=== PATIENT | female | born 1975 | race African-American/Black ===

== ENCOUNTER 2022-06-01 20:50 | Emergency (ER) | payer MEDICARE, SELFPAY ==
[2022-06-01 21:08] VITALS: BP 135/78; PULSE 85; RESP 18; TEMP 36.7; O2SAT 98; BMI 36.9
--- NOTE | 2022-06-01 21:34 | CRLHL7_ITS ---
For Patients: As a result of the Cures Act, medical imaging exams and procedure reports are released immediately into your electronic medical record. You may view this report before your referring provider. If you have questions, please contact your health care provider. INDICATION: Dyspnea, history chronic obstructive pulmonary disease TECHNIQUE: Chest radiograph 2 views COMPARISON: None FINDINGS: The sensitivity and specificity of the exam are moderately limited by the patient`s body habitus. Mediastinum: The mediastinum is normal in appearance. Mild cardiomegaly is present. Lung: Both lungs are unremarkable in appearance. No sign of pleural effusion seen. No pneumothorax is identified. Bone and Soft tissue: Unremarkable for age. IMPRESSION: 1. Mild cardiomegaly is present. Dictated by Uriel Estrada MD @ 06/01/2022 9:54:56 PM Dictated by: Uriel Estrada MD @ 06/01/2022 21:54:59 (Electronically Signed)
[2022-06-01 21:58] LABS: PCR FLU A Negative PCR FLU A (Negative); PCR FLU B Negative PCR FLU B (Negative); PCR RSV Negative PCR RSV (Negative)
--- NOTE | 2022-06-01 22:06 | ED_ITS ---
HPI - General Adult General Chief complaint: Shortness of Breath/Dyspnea Stated complaint: Shortness of breath, can't catch breath Time Seen by Provider: 06/01/22 21:04 Source: patient Mode of arrival: ambulatory Limitations: no limitations History of Present Illness HPI narrative: 46-year-old female smoker presents to the emergency department with shortness of breath and cough for the past 2 and half weeks. Symptoms seem to be worsening significantly over the last couple of days. She states that going outside and 1st thing in the morning seem to worsen her symptoms the most. She was told that she had the early stages of emphysema 3 years ago and she actually no longer smokes cigarettes for the past year but does continue to vape. She denies a history of asthma. She has tried drinking tea with no improvement in her symptoms she tried cough syrup once. It did not improve her symptoms. She did not try inhalers or any other measures to help with her shortness of breath. She says that the cough taste like copper but has no gross hemoptysis. Productive of mucus. No fevers. No GI changes. She feels very fatigued from the illness but no chest pain, dizziness. No pertinent travel. No known ill contacts. Past medical history notable for anxiety disorder and tobacco use. She states that her home medications are Vistaril, metformin for weight loss and pre diabetes, mirtazapine for sleep and Suboxone. Socially, denies illicit drug use but does continue to use tobacco containing products and vape. No pertinent travel. ROS is notable for the generalized and respiratory symptoms as above, otherwise denies times 12 systems. Related Data Home Medications Medication Instructions Recorded Confirmed buprenorphine 8 mg-naloxone 2 mg 1 tab sublingual DAILY 06/01/22 06/01/22 sublingual tablet gabapentin 300 mg capsule 300 mg PO BID 06/01/22 06/01/22 hydroxyzine HCl 25 mg tablet 25 mg PO TID 06/01/22 06/01/22 metformin 500 mg tablet 1,000 mg PO BID 06/01/22 06/01/22 methocarbamol 500 mg tablet 500 mg PO BID 06/01/22 06/01/22 mirtazapine 30 mg tablet 30 mg PO DAILY 06/01/22 06/01/22 Previous Rx's Medication Instructions Recorded albuterol sulfate 90 mcg/actuation 2 puff inhalation Q4-6H PRN 06/01/22 aerosol inhaler shortness of breath or wheezing #8.5 grams doxycycline hyclate 100 mg capsule 100 mg PO BID 7 days #14 caps 06/01/22 inhalational spacing device (Space #1 ea 06/01/22 Chamber) prednisone 20 mg tablet 20 mg PO BID #10 tabs 06/01/22 Allergies Allergy/AdvReac Type Severity Reaction Status Date / Time No Known Drug Allergies Allergy Verified 06/01/22 21:11 PFSH PFS Social History Non-prescribed substance use: denies use service: No Exam Const: Vital Signs, click to edit/add: Vital Signs - 24 hr 06/01/22 21:08 Temperature 98.0 F Pulse Rate [Right Pulse Oximeter] 85 Respiratory Rate 18 Blood Pressure [Ri ght Upper Arm] 135/78 Pulse Oximetry 98 Oxygen Delivery Me thod Room Air Documenting provider has reviewed patient's vital signs: yes Common normals: no apparent distress General appearance: cooperative Other: Anxious but cooperative HENMT: Common normals: normocephalic and TM's normal bilaterally Head and scalp: normocephalic Face and sinus: normal facial exam Tympanic membrane: TM's normal bilaterally Mouth: oral and palatal mucosa normal Throat: posterior oropharynx normal Eye: Common normals: conjunctivae normal Conjunctiva: conjunctiva(e) normal Other: Normal pupils and visual gaze Neck & C-Spine: Common normals: full ROM and no lymphadenopathy Resp: Common normals: normal respiratory effort and no use of accessory muscles Effort & inspection: able to speak in complete sentences Other: Decreased air movement with prolongation of expiration and faint end-expiratory wheeze. After nebulizer treatment, air movement is moderately improved, still has some wheezing. No crackles. Cardio: Common normals: regular rate, regular rhythm, S1 normal heart sound, S2 normal heart sound, no murmurs and peripheral pulses 2+ throughout Rate: regular rate Rhythm: regular rhythm Heart sounds: S1 normal and S2 normal Peripheral pulses: pulses 2+ throughout Extremity: Common normals: normal capillary refill and no pedal edema Neuro: Motor exam: strength 5/5 throughout, no tremor noted and no movement abnormalities noted Psych: Common normals: speech normal Attitude: engaged Activity/motor behavior: appropriate eye contact Speech: normal speech Mood and affect: euthymic mood Insight: insight good Judgement: judgment good Skin: Common normals: no rashes or lesions noted General skin exam: no rashes or lesions noted Course Vital Signs Vital signs: Initial Vital Signs Temperature 98.0 F 06/01/22 21:08 Temperature Source Temporal Artery Scan 06/01/22 21:08 Pulse Rate 85 06/01/22 21:08 Respiratory Rate 18 06/01/22 21:08 Blood Pressure 135/78 06/01/22 21:08 Blood Pressure Mean 97 06/01/22 21:08 Blood Pressure Position Sitting 06/01/22 21:08 Pulse Oximetry 98 06/01/22 21:08 Oxygen Delivery Method 06/01/22 21:08 Vital Signs Temperature 98.0 F 06/01/22 21:08 Pulse Rate 85 06/01/22 21:08 Respiratory Rate 18 06/01/22 21:08 Blood Pressure 135/78 06/01/22 21:08 Pulse Oximetry 98 06/01/22 21:08 Oxygen Delivery Method 06/01/22 21:08 Temperature 98.0 F 06/01/22 21:08 Pulse Rate 85 06/01/22 21:08 Respiratory Rate 18 06/01/22 21:08 Blood Pressure 135/78 06/01/22 21:08 Pulse Oximetry 98 06/01/22 21:08 Oxygen Delivery Method 06/01/22 21:08 Medical Decision Making MDM Narrative Medical decision making narrative: Suspect COPD exacerbation. Swabs pending for COVID, RSV, influenza. Recommend chest x-ray due to duration of symptoms. Counseled the blood work will not likely be helpful in making diagnosis. Will start with nebulizer treatment, prednisone and doxycycline, reassess. Update: Repeat assessment showing that she is moving more air with the nebulizer treatment which is reassuring. She does not feel markedly better but appears more comfortable. Normal chest x-ray reviewed with patient, findings of negative swabs reviewed with patient. Discussed plan of care. Albuterol given from in stay med since it is middle of the night. Initial doses of prednisone and doxycycline already given. Subsequent doses provided via prescription. Additional albuterol with spacer prescribed, use discussed. Counseled patient that her symptoms will not fully improve in the next few days but she should be showing improvement within 3 days. It will take several weeks for the cough and shortness of breath ago way completely. Advised to stop use of her vape device as soon as possible to prevent further long damage. She verbalized understanding and agreement. Alarm symptoms as reasons to come back to the ED were reviewed. Lab Data Lab results reviewed: Yes I reviewed the patient's lab results Labs: Lab Results 06/01/22 Range/Units 21:08 SARS-CoV-2 (PCR) Negative SARS-CoV-2 (Negative) Influenza Type A (PCR) Negative PCR FLU A (Negative) Influenza Type B (PCR) Negative PCR FLU B (Negative) RSV (PCR) Negative PCR RSV (Negative) Imaging Data Chest x-ray: Attestation: I have reviewed the pertinent imaging results. My impression: Clear lungs Radiologist's impression: IMPRESSION: 1. Mild cardiomegaly is present. Discharge Plan Discharge Clinical Impression: Acute infective exacerbation of chronic obstructive airway disease Patient Disposition: Home, Self-Care Condition: Improved Instructions: COPD (Chronic Obstructive Pulmonary Disease) (DC) Additional Instructions: Your chest x-ray looks good, no signs of pneumonia. Unfortunately, you do have underlying chronic lung disease from years of smoking. When you get these illnesses and they do not clear, this is called and exacerbation of COPD. Even though you did not feel significantly better, your lungs did move quite a bit more air after the nebulizer treatment. You will continue use of the same medication through an inhaler as needed. It is most important to use it right before bed, 1st thing in the morning and when you feel short of breath, up to every couple of hours. I will give you a prescription for this plus a spacer which helps the medicine get deeper into your lungs and work better. We gave you a dose of prednisone which will help significantly with the inflammation but may cause some anxiety and we started you on an antibiotic. 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 If you are not starting to improve within 3 days, follow up with her primary care doctor. Unfortunately, your lungs will likely stay somewhat inflamed for several weeks, even up to a month. You may continue use of the inhaler during this time. Activity Level: Activity as Tolerated Discharge Diet: Regular Prescriptions: New prednisone 20 mg tablet 20 mg PO BID Qty: 10 0RF doxycycline hyclate 100 mg capsule 100 mg PO BID 7 Days Qty: 14 0RF albuterol sulfate 90 mcg/actuation HFA aerosol inhaler 2 puff inhalation Q4-6H PRN (Reason: shortness of breath or wheezing) Qty: 8.5 2RF (DME) Space Chamber Spacer See Rx Instructions .Route Qty: 1 0RF Rx Instructions: As directed No Action buprenorphine-naloxone 8-2 mg tablet, sublingual 1 tab SUBLINGUAL DAILY Label Comments: DISSOLVE 1 TABLET UNDER TONGUE DAILY FOR 28 DAYS metformin 500 mg tablet 1,000 mg PO BID methocarbamol 500 mg tablet 500 mg PO BID mirtazapine 30 mg tablet 30 mg PO DAILY gabapentin 300 mg capsule 300 mg PO BID hydroxyzine HCl 25 mg tablet 25 mg PO TID Label Comments: TAKE 1 TABLET BY MOUTH THREE TIMES DAILY NEEDED FOR ANXIETY Follow Up/Referrals: Provider,Not a Local [Primary Care Provider] - Stand Alone Forms: [facility] [employer] Info Instructions
[2022-06-01 22:08] LABS: SARS PCR* Negative SARS-CoV-2 (Negative)
[2022-06-01] MEDS: IPRAT-ALBUT 0.5-2.5 MG/3 ML NEB 1 NEB IH (22:10)
[2022-06-01] MEDS: DOXYCYCLINE HYCLATE 100 MG CAPSULE PO (22:22)
[2022-06-01] MEDS: predniSONE 10 MG TABLET 20 MG PO (22:22)
--- NOTE | 2022-06-02 10:19 | ED.NURSE ---
Pt called and stated that two of her medications did not get sent to pharmacy, but they received the inhaler. Doxycyline and predisone called in per d/c instructions.
== END 2022-06-01 22:42 | disposition home or self-care (01) ==
PROVIDERS: Emergency Provider Family Medicine
DX: J44.1 Chronic obstructive pulmonary disease with (acute) exacerbation (principal)
CPT/HCPCS: 71046; 87502; 87634; 87635; 94640; 99283; 99284; A9270; J7512

== ENCOUNTER 2024-12-12 20:39 | Emergency (ER) | payer OTHER, SELFPAY ==
--- OUTSIDE RECORDS SUMMARY | 2024-12-12 20:42 | XMS_ITS | Clinical Summary ---
Author Organization [facility] Address [address] [place] [id number] Care Team Providers Care Studio Sales Associate Name Role Phone Unavailable Primary Care Provider Unavailabl e Allergies Active Allergy Reactions Criticality Noted Date Comments Compazine 02/02/2006 Heart races Medications ORTHO EVRA 150-20 MCG/24HR TD PTWKIndications:Ro utine gynecological examination apply one patch every week for 3 weeks then one week off, repeat monthly #9 patches 3 6 Active PERCOCET 5-325 MG OR TABSIndications:DD D (degenerative disc disease), lumbar,Lumbar radiculopathy,Hip pain ONE TO TWO TABLETS EVERY 4 TO 6 HOURS NEEDED FOR PAIN 20 tabs 0 9 Active ZANAFLEX 2 MG OR TABSIndications:DD D (degenerative disc disease), lumbar,Lumbar radiculopathy 1 TO 2 TABLETS AT BEDTIME FOR BACK SPASMS. 30 TABS 5 9 Active IBUPROFEN 200 MG OR TABS takes twice daily Active FIBER OR once daily Active NEURONTIN 100 MG OR CAPSIndications:My ofascial pain syndrome, diffuse,Chronic pain syndrome Take one capsule every night and increase as directed to a max dose of 300 mg every 8 hrs 200 0 9 Active AMITRIPTYLINE HCL 10 MG OR TABSIndications:My ofascial pain syndrome, diffuse,Chronic pain syndrome Take one tablet every night for 7 days then increase to 20 mg every night 60 0 9 Active LIDODERM 5 % EX PTCHIndications:My ofascial pain syndrome, diffuse,Chronic pain syndrome Apply 1-3 daily as neede to painful areas 30 0 9 Active oxyCODONE-acetamin ophen (PERCOCET) 5-325 MG per tablet Take 1-2 tablets by mouth every 4 hours as needed for moderate to severe pain 25 tablet 0 4 Active oxyCODONE-acetamin ophen (PERCOCET) 5-325 MG per tablet Take 1-2 tablets by mouth every 4 hours as needed for moderate to severe pain 15 tablet 0 5 Active Active Problems Problem Noted Date Diagnosed Date CARDIOVASCULAR SCREENING; LDL GOAL LESS THAN 160 08/22/2009 Backache 04/19/2006 Overview (01/14/2015): Pt saw [facility] 03/[facility]; Klonopin 0.5mg at bedtime for next 2-3 months Percocet 1 tablet every 6 hrs. (30 PER MONTH) for next 2-3 months Robaxin 500mg every 6 hrs. Prn MRI Scheduled and recommended group therapy for pain management. MRI scheduled to r/o disc injury. Seen by Dr. Yoel Saeed (04/13/06) Please read consult. Problem list name updated by automated process. Provider to review MEDICAL HISTORY OF -drug seeking behavior? 02/02 Overview (02/02/2006): Pt has received percocet or vicodin for various issues on 09/29/04, 11/10/04, 01/17/05, 02/18/05, 03/21/05, 06/05/05, 09/19/05, 09/26/05, 09/27/05, 12/17/05. Single liveborn, born in hospital, delivered Overview (01/14/2015): Problem list name updated by automated process. Provider to review Vag Culture pos GBS 5-1-05 09/07/2004 Other symptoms referable to back 03/28/2004 Goiter 03/22/2004 Overview (01/14/2015): Problem list name updated by automated process. Provider to review Migraine 03/22/2004 Overview (01/14/2015): Problem list name updated by automated process. Provider to review Encounter for supervision of other normal pregna ncy 03/22/2004 Overview (02/15/2015): Diagnosis updated by automated process. Provider to review and confirm. Resolved Problems Problem Noted Date Diagnosed Date Resolved Date Lumbago 02/15/2006 06/03/2006 Family History Medical History Relation Comments Neurologic Disorder Father migraines C.A.D. Maternal Aunt 1 Hypertension Maternal Aunt 2 C.A.D. Maternal Grandfather Hypertension Maternal Grandmother Hypertension Maternal Uncle C.A.D. Mother Neurologic Disorder Mother cluster SCHERER Respiratory Mother COPD/asthma Hypertension Paternal Aunt Hypertension Paternal Grandmother Hypertension Paternal Uncle Neurologic Disorder Sister migraines Relation Status Comments Father Maternal Aunt 1 Maternal Aunt 2 Maternal Grandfather Maternal Grandmother Maternal Uncle Mother Paternal Aunt Paternal Grandmother Paternal Uncle Sister Social History Tobacco Use Types Packs/Day Years Used Date Smoking Tobacco: Every Day Cigarettes 0.5 15 Smokeless Tobacco: Never Alcohol Use Standard Drinks/Week Comments Yes 0 (1 standard drink = 0.6 oz pur e alcohol) occ Comments No Sex and Gender Information Value Date Recorded Sex Assigned at Not on file 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 Gender Identity Not on file Sexual Orientation Not on file Occupation Industry Job Start Date Job End Date Not on file Not on file Not on file Not on file Last Filed Vital Signs Vital Sign Reading Time Taken Comments Blood Pressure 94/45 09/13/2018 6:04 PM CDT Pulse 79 09/13/2018 6:04 PM CDT Temperature 36.9 C (98.5 F) 09/13/2018 5:03 PM CDT Respiratory Rate 19 09/13/2018 7:13 PM CDT Oxygen Saturation 97% 09/13/2018 7:13 PM CDT Inhaled Oxygen Concentration - - Weight 64.4 kg (142 lb) 09/13/2018 5:03 PM CDT Height 165.1 cm (5' 5) 09/13/2018 5:03 PM CDT Body Mass Index 23.63 09/13/2018 5:03 PM CDT Plan of Treatment Not on [place] [address] [place] [address]
--- OUTSIDE RECORDS SUMMARY | 2024-12-12 20:42 | XMS_ITS | Encounter Summary ---
Author Organization [place] Address [facility] [place] [address] Care Team Providers Care Hide Buyer Name Role Phone No Ref-Primary, Physician Primary Care Provider System, Provider Not In Primary Care Provider Un available Encounter Details Date Type Department Care Team (Late st Contact Info) Description 09/27/2004 [facility] [address] [place] [id number] Caroline Campbell APRN CNM NO INFO AVAILABLE 02/02/2022 Delivery pathway (Primary Dx) Social History Tobacco Use Types Packs/Day Years Used Date Smoking Tobacco: Every Day Cigarettes 0.5 15 Smokeless Tobacco: Never Alcohol Use Standard Drinks/Week Comments Yes 0 (1 standard drink = 0.6 oz pur e alcohol) occ Comments No Sex and Gender Information Value Date Recorded Sex Assigned at Not on file 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
--- OUTSIDE RECORDS SUMMARY | 2024-12-12 20:42 | XMS_ITS | Encounter Summary ---
Author Organization [facility] Address [address] [place] [address] Care Team Providers Care Engine Dynamometer Tester Name Role Phone No Ref-Primary, Physician Primary Care Provider System, Provider Not In Primary Care Provider Un available Encounter Details Date Type Department Care Team (Late st Contact Info) Description 09/27/2004 [facility] [address] [place] [id number] Caroline Campbell APRN CNM NO INFO AVAILABLE 02/02/2022 Social History Tobacco Use Types Packs/Day Years Used Date Smoking Tobacco: Every Day Cigarettes 0.5 15 Smokeless Tobacco: Never Alcohol Use Standard Drinks/Week Comments Yes 0 (1 standard drink = 0.6 oz pur e alcohol) occ Comments No Sex and Gender Information Value Date Recorded Sex Assigned at Not on file Legal Sex Female 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 delivery of a viable 8 pounds 4 ounces Female . Apgars of 9 at 1 minute and 9 at 5 minutes. Labor was spontaneous. Meds in labor: Pain Rx ITN ; Antibiotics Yes: PCN prophylaxsis Perinium: Intact Placenta-mechanism: spontaneous, intact and 3 vessel cord Estimated Blood Loss was 250. Complications of regency, labor and delivery: None attendants: Caroline Campbell CNM documented in this encounter Plan of Treatment Not on file documented as of this encounter Visit Diagnoses Not on filedocumented in this encounter Care Teams Engine Dynamometer Tester Relationship Specialty Start Date End Date No Ref-Primary, Physician PCP - General 07/26/13 09/12/18 System, Provider Not In PCP - General Clinic 09/13/18 09/13/18 documented as of this encounter
[2024-12-12 20:51] VITALS: BP 127/79; PULSE 93; RESP 16; TEMP 36.9; O2SAT 98; BMI 36.3
--- NOTE | 2024-12-12 21:24 | ED.GENADULT ---
HPI - General Adult General Date Seen: 12/12/24 Chief complaint: Anxiety Stated complaint: withdrawal Time Seen by Provider: 12/12/24 21:24 History of Present Illness HPI narrative: 49-year-old female presents to the ER today because she is having trouble with anxiety , insomnia. She presents to the ER today with her friend. Patient reports that she has a history of anxiety and also had history of chronic pain. She had been managing her chronic pain on Suboxone for about 6 years. She got her prescription for Suboxone from a Dr. Arzate in [place]. She also had anxiety. She sounds like she had been tried on multiple medications but ultimately subtle on a regimen of mirtazapine, trazodone, hydroxyzine, gabapentin for anxiety. Almost a year ago she lost her health insurance so has not had any checkups with her doctor since then. She had had refill prescriptions for her anxiety med so had been taking them for the past several months but knowing that she was going to run out of medication she has been skipping days and weaning herself off her meds. In particular she has been weaning off her Suboxone. She previously had been a on a dose that was apparently half of an 8 mg/2 mg tablet or film. She had been taking half that for quite some time. For the past couple months she had been taking a quarter of it and skipping days. She has been completely out of Suboxone now for 6 days. She notes a big increase in her anxiety she is having anxiety attacks, insomnia, restlessness, agitation. She apparently tried to get a virtual visit with her doctor today but they could not see her (she even offered to make it a ?self pay? visit). She does have an appointment to see her doctor in [place] on Sunday. However with increasing anxiety she came here to the ER davian. She says she did not want to come to the ER because she does not want of the ER feeling cannot afford to be here. She says she does not want any ?antidepressants? because they do not help her anxiety. She just wants medicine to help her anxiety over the weekend.. Related Data Home Medications ?Medication ?Instructions ?Recorded ?Confirmed buprenorphine 8 mg-naloxone 2 mg 1 tab sublingual DAILY 06/01/22 06/01/22 sublingual tablet gabapentin 300 mg capsule 300 mg PO BID 06/01/22 06/01/22 hydroxyzine HCl 25 mg tablet 25 mg PO TID 06/01/22 06/01/22 metformin 500 mg tablet 1,000 mg PO BID 06/01/22 06/01/22 methocarbamol 500 mg tablet 500 mg PO BID 06/01/22 06/01/22 mirtazapine 30 mg tablet 30 mg PO DAILY 06/01/22 06/01/22 Previous Rx's ?Medication ?Instructions ?Recorded albuterol sulfate 90 mcg/actuation 2 puff inhalation Q4-6H PRN 06/01/22 aerosol inhaler shortness of breath or wheezing #8.5 grams doxycycline hyclate 100 mg capsule 100 mg PO BID 7 days #14 caps 06/01/22 inhalational spacing device (Space #1 ea 06/01/22 Chamber) prednisone 20 mg tablet 20 mg PO BID #10 tabs 06/01/22 Allergies Allergy/AdvReac Type Severity Reaction Status Date / Time droperidol AdvReac Anxiety Verified 12/12/24 20:58 prochlorperazine (From AdvReac Anxiety Verified 12/12/24 20:58 Compazine) [facility] Social History Smoking Status: Never smoker How often do you have a drink containing alcohol: never AUDIT-C Alcohol total score: 0 Non-prescribed substance use: denies use service: No Exam Narrative: Exam Narrative: Constitutional: Appears well-developed and well-nourished. Active. Non-toxic appearing. Anxious. HENT: Head: Atraumatic. No signs of injury. Nose: No nasal discharge. Mouth/Throat: Mucous membranes are moist. No trismus. Eyes: Conjunctivae normal and EOM are normal. Pupils are equal, round, and reactive to light. Right eye exhibits no discharge. Left eye exhibits no discharge. No icterus. Neck: Normal range of motion. Neck supple. No adenopathy. No stridor. Cardiovascular: Normal rate and regular rhythm. Pulmonary/Chest: Effort normal. No stridor. No respiratory distress. Musculoskeletal: Normal range of motion. No edema. No tenderness. No deformity. Neurological: Alert. Normal strength. No cranial nerve deficit or sensory deficit. Coordination normal. GCS eye subscore is 4. GCS verbal subscore is 5. GCS motor subscore is 6. Skin: Skin is warm. No rash noted. Psych: She is anxious. She jumps rapidly from symptoms symptom. History is as per HPI. It sounds like she had been managing her anxiety over the long-term with trazodone and mirtazapine for sleep which she said were effective. She also has hydroxyzine and gabapentin for anxiety during the day. Although she has not had health insurance or seen her doctor in almost year it sounds like she did have supplies of these medications at home this week. It sounds like she has been using the med sporadically in order to stretch out her supply. She says that her meds are not helping with her anxiety this week. She also had been on Suboxone because of a history of chronic pain. However she is running out of that. She does not want any Suboxone and does not want a refill of that tonight. She does not want any antidepressants or other medications which have been prescribed to her in the past, apparently by mental health providers. She thinks they will not work for her. She denies drug or alcohol abuse. No suicidal thoughts. No hallucinations. Const: Vital Signs, click to edit/add: Vital Signs - 24 hr 12/12/24 20:51 12/12/24 22:37 Temperature 98.4 F 98.1 F Pulse Rate [Left P ulse Oximeter] 93 75 Respiratory Rate 16 18 Blood Pressure [Ri ght Upper Arm] 127/79 133/81 Pulse Oximetry 98 95 Oxygen Delivery Me thod Room Air Room Air Course Vital Signs Vital signs: Initial Vital Signs Temperature 98.4 F 12/12/24 20:51 Temperature Source Temporal Artery Scan 12/12/24 20:51 Pulse Rate 93 12/12/24 20:51 Pulse Rhythm Regular 12/12/24 20:51 Respiratory Rate 16 12/12/24 20:51 Blood Pressure 127/79 12/12/24 20:51 Blood Pressure Mean 95 12/12/24 20:51 Blood Pressure Position Sitting 12/12/24 20:51 Pulse Oximetry 98 12/12/24 20:51 Oxygen Delivery Method Room Air 12/12/24 20:51 Vital Signs Temperature 98.4 F 12/12/24 20:51 Pulse Rate 93 12/12/24 20:51 Respiratory Rate 16 12/12/24 20:51 Blood Pressure 127/79 12/12/24 20:51 Pulse Oximetry 98 12/12/24 20:51 Oxygen Delivery Method Room Air 12/12/24 20:51 Temperature 98.1 F 12/12/24 22:37 Pulse Rate 75 12/12/24 22:37 Respiratory Rate 18 12/12/24 22:37 Blood Pressure 133/81 12/12/24 22:37 Pulse Oximetry 95 12/12/24 22:37 Oxygen Delivery Method Room Air 12/12/24 22:37 Medical Decision Making MDM Narrative Medical decision making narrative: 49-year-old female presenting to the ER tonight because she cannot get in to primary care. It sounds like there are multiple barriers to health care for her including that she lost her health insurance almost a year ago and has not had any checkups with her primary care for quite a few months. She apparently called her primary care office today to try to get an appointment (on the Sunday before ) but was not able to get 1 until Sunday (after the holiday ). She is endorsing worsening anxiety for the past 6 days with panic attacks, anxiousness, irritability, insomnia. We had a very long discussion with myself, the patient, and her friend. The patient is declining offered evaluation by telepsych (she says that they would just want a put her in antidepressants and she will not take those). When we discussed that her anxiety seems to be flaring this week after stopping Suboxone, offered to give her another dose of Suboxone here in the ER. She adamantly refuses and says she does not want to take that anymore. At this point she is not depressed or suicidal, hallucinating. She is not posing a threat to herself or other. She does not meet criteria for hold. She is refusing evaluation by telehealth. We discussed options. She is failing to get relief of her anxiety with hydroxyzine and gabapentin. She is willing to try Ativan. I will give her a 1 time prescription for Ativan-10 tablets 1 mg each. One tablet every 8 hours as needed. Prescription provided through [facility]. She understands that we cannot give refill prescriptions for benzos through the ER so it is very important for her to follow-up with her primary care provider on Sunday. However she is invited to return to the ER if she has any other concerns or needs other treatment for anxiety or mental health. Discharge Plan Discharge Clinical Impression: Acute anxiety Patient Disposition: Home, Self-Care Condition: Stable Instructions: Anxiety (ED) Additional Instructions: As we discussed, you can use Ativan along with your regular medications to help treat your anxiety this weekend. Be careful with Ativan (generic name lorazepam) because it is a benzodiazepine. It can cause drowsiness and dizziness. It can be addictive. Using carefully but do not mix with alcohol. Please follow-up with your regular doctor on Sunday for a recheck. We cannot give you refill prescriptions for Ativan through the ER, but remember you can come back to the ER any time if your bring worsening symptoms, , or if you need help, especially if you have thoughts of self-harm, hallucinations or delusions, or worsening insomnia. Prescriptions: No Action buprenorphine-naloxone 8-2 mg tablet, sublingual 1 tab SUBLINGUAL DAILY Patient Comments: DISSOLVE 1 TABLET UNDER TONGUE DAILY FOR 28 DAYS metformin 500 mg tablet 1,000 mg PO BID methocarbamol 500 mg tablet 500 mg PO BID mirtazapine 30 mg tablet 30 mg PO DAILY gabapentin 300 mg capsule 300 mg PO BID hydroxyzine HCl 25 mg tablet 25 mg PO TID Patient Comments: TAKE 1 TABLET BY MOUTH THREE TIMES DAILY NEEDED FOR ANXIETY prednisone 20 mg tablet 20 mg PO BID Qty: 10 0RF doxycycline hyclate 100 mg capsule 100 mg PO BID 7 Days Qty: 14 0RF albuterol sulfate 90 mcg/actuation HFA aerosol inhaler 2 puff inhalation Q4-6H PRN (Reason: shortness of breath or wheezing) Qty: 8.5 2RF (DME) Space Chamber Spacer See Rx Instructions .Route Qty: 1 0RF Rx Instructions: As directed Follow Up/Referrals: Provider,Not a Local [Primary Care Provider, Family Practice] Stand Alone Forms: [employer] Info Instructions
[2024-12-12 22:37] VITALS: BP 133/81; PULSE 75; RESP 18; TEMP 36.7; O2SAT 95
== END 2024-12-12 22:39 | disposition home or self-care (01) ==
LOC: ED 22:19
PROVIDERS: Emergency Provider Emergency Medicine
DX: F41.9 Anxiety disorder, unspecified (principal)
CPT/HCPCS: 99283